=== PATIENT | male | born 1995 | race Caucasian/White ===

== ENCOUNTER 2022-04-28 07:23 | Emergency (ER) | payer OTHER, SELFPAY ==
[2022-04-28 07:25] VITALS: BP 156/105; PULSE 98; RESP 20; TEMP 36.2; O2SAT 98; BMI 62.4
[2022-04-28] MEDS: Lidocaine/Epi/Tetracaine 50 ML 1 APPLIC TOPICAL (08:08)
[2022-04-28] MEDS: Diphth,Pertuss(Acell),Tet Vac 0.5 ML Vial IM (08:08)
--- NOTE | 2022-04-28 09:15 | EDS_ITS ---
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 [id number]. No other injuries. Tetanus Immunization: >10 years [facility] [place] Medical History Depression Hypothyroid Home Medications atorvastatin 20 mg tablet 20 mg PO DAILY 04/28/22 [History Last Taken Unknown] levothyroxine 50 mcg tablet (Synthroid) 50 mcg PO DAILY 04/28/22 [History Last Taken Unknown] lisdexamfetamine 70 mg capsule (Vyvanse) 70 mg PO DAILY 04/28/22 [History Last Taken Unknown] sertraline 50 mg tablet 50 mg PO DAILY 04/28/22 [History Last Taken Unknown] Allergy/AdvReac Type Severity Reaction Status Date / Time No Known Allergies Allergy Verified 04/28/22 07:26 Social History Smoking Status: Never smoker ROS ROS ED Constitutional Constitutional ED: Denies chills or fever(s) Musculoskeletal Musculoskeletal: Reports extremity pain; Denies neck pain Integumentary Reports laceration; Denies Abrasions or rash Neurologic Neurologic: Denies paresthesias or weakness EXAM Physical Exam Const Vital Signs: 04/28/22 07:25 Temperature 97.1 F L Temperature Source Temporal Pulse Rate 98 Respiratory Rate 20 H Blood Pressure 156/105 H Blood Pressure Mean 122 Pulse Ox 98 Oxygen Delivery Method Room Air Positive well nourished and well developed General Appearance ED: well developed and NAD Neck full ROM and supple Back/Spine normal ROM and normal to inspection Extremity full ROM Extremity Narrative: Laceration to the dorsum of the left hand. See below. No bony tenderness throughout the metacarpals at the volar aspect. Full range of motion all fingers including extension. Neuro oriented x3, no focal motor deficits and no sensory deficits noted Sensorium / Orientation: alert Psych mental status grossly normal and thought process normal Skin Skin Narrative: 2 cm curved partial-thickness laceration to the dorsum of the left hand right in the middle. No foreign material. No signs of infection. No tenderness. Rashes: no rashes MDM MDM MDM Narrative Medical decision making narrative: Laceration scrubbed and repaired given appropriate discharge instructions for follow-up and keeping it clean/covered. Tetanus updated. Procedures Lacerations Left hand: Length: 2 cm Depth: Skin Shape: Curved Prep: Sterile Conditions and Chlorhexadine (Scrubbed) Laceration repair: Lidocaine with epi (Topical LET followed by 0.5 cc 2% lidocaine with epinephrine) Number of Sutures/Jacinda: 4 Suture Information: Ethilon, Simple and 4-0 Discharge Plan Triage Chief Complaint: Laceration ED Provider: Jorge Luis Herndon Dx/Rx/DC Orders Clinical Impression: Laceration of left hand, Immunization, tetanus-diphtheria Instructions: Tdap Vaccine, ED Laceration, Hand: All Closures Prescriptions: No Action atorvastatin 20 mg Tablet 20 mg PO DAILY levothyroxine [Synthroid] 50 mcg Tablet 50 mcg PO DAILY sertraline 50 mg Tablet 50 mg PO DAILY Vyvanse 70 mg Capsule 70 mg PO DAILY Primary Care Provider: CARMEN FIELD Referrals: CARMEN FIELD [Other] Corporate,[facility] [place] [Group of Physicians] - 7 Days for suture removal Disposition Disposition: Home, Self Care
== END 2022-04-28 09:50 | disposition home or self-care (01) ==
PROVIDERS: Emergency Provider Emergency Medicine; Visit Provider Emergency Medicine
DX: S61.412A Laceration without foreign body of left hand, initial encounter (principal); W26.8XXA Contact with other sharp object(s), not elsewhere classified, initial encounter; Y99.0 Civilian activity done for income or pay; Y92.63 Factory as the place of occurrence of the external cause; Z23 Encounter for immunization
CPT/HCPCS: 12001; 90471; 90715; 99283